=== PATIENT | female | born 1950 | race Caucasian/White ===

== ENCOUNTER → 2025-04-14 07:56 | Outpatient (REF) | payer MEDICARE, SELFPAY ==
--- NOTE | 2025-04-14 13:28 | OID.BR.INTR ---
OID Breast Navigator - Initial
- -
Did not meet patient at time of biopsy. Will follow up per protocol.
== END ==
LOC: WDC 07:56
PROVIDERS: ATTENDING PHYSICIAN Obstetrics & Gynecology
DX: R92.1 Mammographic calcification found on diagnostic imaging of breast (principal)
CPT/HCPCS: 88305; 19081; 76098; A4648

== ENCOUNTER 2025-06-13 13:00 | Inpatient (IN) | payer MEDICARE, SELFPAY ==
[2025-06-13] VITALS (13 sets, daily range): BP systolic 28–154; BP diastolic 44–72; BMI 20.2
[2025-06-13 13:25] LABS: Glucose - Point of Care 84 mg/dl (70-99)
[2025-06-13] MEDS: LOVENOX 40 MG SC (13:37)
[2025-06-13] MEDS: VANCOCIN 200 IV (13:40)
[2025-06-13] MEDS: TYLENOL 1000 MG PO (13:40)
[2025-06-13] MEDS: NORMOSOL-R/PLASMALYTE-A 1000 IV (13:42)
[2025-06-13 16:37] LABS: Glucose - Point of Care 130 mg/dl (70-99)
--- NOTE | 2025-06-13 16:41 | W.IMMPOSTOP ---
Surgical Immed Post Op Note
-
Primary Surgeon: Vandana
Assisting Surgeon: None
Pre-op Diagnosis: Right breast DCis
Post-op Diagnosis: Same
Procedure Performed: Right simple mastectomy
Anesthesia Type: LMA
Specimen / Cultures: Right breast
Estimated Blood Loss: 30cc
Complications: None
Operative Findings: None
--- NOTE | 2025-06-13 16:44 | OR.RPT ---
Operative Report
Operative Report
Date of procedure: 06/13/25
Surgeon: Vandana
Preoperative diagnosis: Right breast DCIS
Postoperative diagnosis: Right breast DCIS
Procedure: Right simple mastectomy
Patient is a 75-year-old female had a prior history of left breast carcinoma treated with breast conservation surgery and radiation. 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
grafts and months of delayed wound healing. She presents now with newly diagnosed right DCIS and desires simple mastectomy only.
On the day of the procedure the patient presented to same-day surgical services where she verified site and procedure. DVT and antibiotic prophylaxis were provided and she was transferred to the operating room. In the supine position LMA
anesthesia was induced. The right breast was prepped and draped in usual sterile fashion. After an appropriate timeout by all staff members standard student Nicole was made sharply with the blade. Skin flaps were elevated superiorly and inferiorly
using the PlasmaBlade. Any larger vessels were controlled with 3-0 silk tie or suture ligature. The breast was taken off the chest wall in a superior to inferior dimension. Was oriented for the pathologist and sent for permanent analysis.
Hemostasis was very carefully inspected and maintained. The wound was irrigated with warm water and suctioned it was closed over a flat [place] drain brought out through the inferior skin flap and secured to the skin with 2-0 nylon. Wound
was closed using simple interrupted 3-0 plain of subcutaneous tissue and skin was closed with hola as the patient was actively smoking.
Sterile compressive dressings were applied. All sponge needle and instrument counts were correct and the patient was transferred to the recovery room in stable condition
([id number])
[2025-06-13] MEDS: DILAUDID 0.25 MG IV (17:00)
--- NOTE | 2025-06-13 18:30 | PTCARENOTE ---
Patient admitted from pacu post right mastectomy.The patient is alert and oriented.She rates her pain at a 3 out of 10.Vital signs are stable.The surgical bra is on and the dressing is intact and dry.The patient is in her bed with the call felix in
reach.Her family is at the bedside.
[2025-06-13] MEDS: D5/0.45%NSS with KCL 20 MEQ 1000 IV (19:43)
[2025-06-13] MEDS: COLACE 100 MG PO (19:44)
[2025-06-13 21:18] LABS: Glucose - Point of Care 293 mg/dl (70-99)
[2025-06-13 21:22] LABS: Glucose - Point of Care 260 mg/dl (70-99)
[2025-06-14 03:00] VITALS: BP 106/44
[2025-06-14] MEDS: NORCO 5/325 1 TABLET PO (04:31)
[2025-06-14 06:50] LABS: Hematocrit 37.5 % (37.0-47.0); Hemoglobin 12.8 g/dL (12.0-16.0)
[2025-06-14 07:14] LABS: Blood Urea Nitrogen 9 mg/dl (7-17); Calcium 8.2 mg/dl (8.4-10.2); Carbon Dioxide 26 mmol/L (22-30); Chloride 110 mmol/L (98-107); Estimated Creatinine Clearance 73 ml/min; Glucose 160 mg/dl (70-99); Potassium 4.1 mmol/L (3.5-5.1); Sodium 139 mmol/L (135-145); eGFR > 60.00
[2025-06-14 07:20] VITALS: BP 128/51
[2025-06-14] MEDS: VITAMIN D3 (cholecalciferol) 50 MCG PO (08:22)
[2025-06-14] MEDS: COLACE 100 MG PO (08:22)
[2025-06-14] MEDS: PROTONIX 40 MG PO (08:22)
[2025-06-14] MEDS: OSCAL 500 + D 500 MG PO (08:22)
[2025-06-14] MEDS: ABILIFY 5 MG PO (08:22)
[2025-06-14] MEDS: FARXIGA 10 MG PO (08:22)
--- NOTE | 2025-06-14 09:27 | W.PN.UPDATE ---
Update Note
Progress Note Update
the patient is POD #1 S/P right simple mastectomy for DCIS and a desire for no XRT after experiencing angiosarcoma after left breast conservation treatment.
The pt is up and eating and has no complaints. Flaps are viable and drain functioning well with low volume drainage. Plan is discharge to home and follow up
in office in [address].
--- NOTE | 2025-06-14 09:36 | W.DS.TRANS ---
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
-
Discharge Instructions:
Sleep Apnea Risk Low
Discharge Diagnosis/Procedures right breast DCIS
Diet No restrictions
Additional Diets 60 gm of protein per day
Activity No strenuous activity
Driving Restrictions No driving for 1 week
Bathing Restrictions tomorrow
Wound Care shower, pat dry, reapply dressings; wear bra
until seen in office
Instructions:
Stand-Alone Forms:
Changes to Home Medications: No
Discharge Medications:
DC Medications w/original date entered in [employer]
acetaminophen 500 mg tablet 1,000 mg PO Q6H PRN pain 06/06/25
aripiprazole 5 mg tablet 5 mg PO DAILY Mental Health/Anxiety 06/06/25
calcium 600 mg (as carbonate)-vitamin D3 5 mcg (200 unit) tablet 1 tab PO DAILY Supplement 06/06/25
cholecalciferol (vitamin D3) 50 mcg (2,000 unit) tablet (Vitamin D3) 50 mcg PO DAILY Supplement 06/06/25
clonazepam 1 mg tablet 1 mg PO HS PRN insomnia 06/06/25
cyanocobalamin (vitamin B-12) 1,000 mcg tablet (Vitamin B-12) 2,000 mcg PO DAILY Supplement 06/06/25
denosumab 60 mg/mL subcutaneous syringe (Prolia) 60 mg SC [id number] 06/06/25
empagliflozin 10 mg tablet (Jardiance) 10 mg PO DAILY Diabetes 06/06/25
escitalopram oxalate 20 mg tablet 20 mg PO DAILY Mental Health/Anxiety 06/06/25
esomeprazole magnesium 40 mg capsule,delayed release (Nexium) 40 mg PO DAILY Gastrointestinal Issue 06/06/25
trazodone 50 mg tablet 50 mg PO HS PRN Insomnia 06/06/25
Home Medication Changes
Pending Results: Yes (pathology report)
--- NOTE | 2025-06-14 10:23 | CM ---
Reviewed the chart notes and spoke with the patient and spouse at bedside. CM consult received for VN. Patient agreeable with referral being sent to [facility] in [facility]. Patient resides with spouse in a one story home with five steps to
enter. The patient has a rolling walker, cane, and shower chair in home. The patient has had VN in past, but no SNF. The patient confirmed her pharmacy of choice is [facility]. CM continues to be available to patient/family and
is monitoring medical plan for needs at discharge.
Plan: Discharge to home with [facility]. Patient's spouse to transport.
[2025-06-14 10:40] VITALS: BP 114/59
--- NOTE | 2025-06-14 12:19 | PTCARENOTE ---
pt educated concerning drain care. pt demonstrated proper technique for emptying, stripping and care for her Right DESTIN drain. collection container provided. pt verbalized understanding.
[2025-06-15 19:11] LABS: Hepatitis C Antibody Negative (Negative)
== END 2025-06-14 12:18 | disposition home health service (06) | DRG 583 ==
LOC: 2 SOUTH 13:00
PROVIDERS: ADMITTING PHYSICIAN Surgery
PROC: 0HTT0ZZ Resection of Right Breast, Open Approach (ICD-10-PCS; 2025-06-13)
DX: D05.11 Intraductal carcinoma in situ of right breast (principal); E11.9 Type 2 diabetes mellitus without complications; E78.5 Hyperlipidemia, unspecified; I10 Essential (primary) hypertension; K21.9 Gastro-esophageal reflux disease without esophagitis; F17.210 Nicotine dependence, cigarettes, uncomplicated; J43.9 Emphysema, unspecified; Z85.3 Personal history of malignant neoplasm of breast; Z92.3 Personal history of irradiation; M81.0 Age-related osteoporosis without current pathological fracture; F32.A Depression, unspecified; F41.9 Anxiety disorder, unspecified; Z79.84 Long term (current) use of oral hypoglycemic drugs; Z79.899 Other long term (current) drug therapy; Z88.0 Allergy status to penicillin; Z88.8 Allergy status to other drugs, medicaments and biological substances
CPT/HCPCS: 80048; 82962; 85014; 85018; 86803; 88307; 93005; L8000